=== PATIENT | male | born 1980 | race African-American/Black ===

== ENCOUNTER 2020-03-12 10:35 | Emergency (ER) | payer OTHER ==
[~2020-03-12] VITALS: Ht 172.7 cm; Wt 65.8 kg
[2020-03-12 10:38] VITALS: BP 148/84
[2020-03-12] MEDS ORDERED: PENICILLIN V P500 MG PO (11:06)
[2020-03-12] MEDS ORDERED: NORCO 5-325 TA1 EAC2 PO (11:06)
== END 2020-03-12 11:28 | disposition home or self-care (01) ==
LOC: ER 10:35
DX: K02.9 Dental caries, unspecified (principal); F17.210 Nicotine dependence, cigarettes, uncomplicated

== ENCOUNTER 2021-04-03 17:43 | Emergency (ER) | payer OTHER ==
[~2021-04-03] VITALS: Ht 165.1 cm; Wt 63.5 kg
[~2021-04-03 17:43] MED LIST: NORCO 5-325 TA1 EAC2 PO; PENICILLIN V P500 MG PO
[2021-04-03] MEDS ORDERED: AUGMENTIN 875-1 EACH PO (18:11)
[2021-04-03] MEDS ORDERED: PERIDEX 0.12%473 M1 SWISH&SPIT (18:11)
[2021-04-03 19:45] VITALS: BP 154/88
== END 2021-04-03 19:00 | disposition home or self-care (01) ==
LOC: ER 17:43
DX: K04.7 Periapical abscess without sinus (principal); F17.210 Nicotine dependence, cigarettes, uncomplicated; Z79.899 Other long term (current) drug therapy